=== PATIENT | female | born 1965 | race African-American/Black ===

== ENCOUNTER → 2016-06-09 | Outpatient (CLI) | payer BC ==
[~2016-06-09] MED LIST: ALBUAER3 IN; BENZ100C70 PO; CLON0.1T PO; FURO20TA PO; IBUP800T24 PO; LEVO500T3 PO; LOSA25TA9 PO; POTA10TA79 PO; PROM2SUP PR; TRAM50TA2 PO; TRIA25CA
[2016-06-09 16:17] LABS: Eosinophils # (auto) 0.1 uL; SUSPECT VIEW TRANSMISSION
[2016-06-09 16:21] LABS: Potassium 3.8 mmol/L (3.5-5.1); Uric Acid 5.8 mg/dL (2.6-6.0)
[2016-06-09 16:23] LABS: Basophils # (auto) 0 uL
[2016-06-09 16:44] LABS: B-Type Natriuretic Peptide 103.88 pg/mL (0-100); Temperature: 22.5 C (20.0-25.0)
[2016-06-09 16:46] LABS: Basophils % (auto) 0.3 % (0.0-2.0); Eosinophils % (auto) 1.1 % (0.0-7.0); Hematocrit 46.2 % (36.0-46.0); Hemoglobin 14.7 g/dL (12.2-16.2); Lymphocytes # (auto) 2.2 uL; Mean Corpuscular Hemoglobin 29.2 pg (28.0-32.0); Mean Corpuscular Hgb Conc. 31.8 g/dL (32.0-36.0); Mean Corpuscular Volume 91.9 fL (80.0-100.0); Mean Platelet Volume 10.1 fL (7.4-10.4); Monocytes # (auto) 0.2 uL; Monocytes % (auto) 3.5 % (0.0-12.0); Neutrophils # (auto) 4.3 uL; Neutrophils % (auto) 63.1 % (37.0-80.0); Platelet Count (auto) 252 10^3/uL (140-450); Red Cell Distribution Width 14.3 % (11.6-16.0); White Blood Cell 6.8 10^3/uL (4.4-10.8)
== END | disposition home or self-care (01) ==
LOC: LAB 15:12
PROVIDERS: ATTEND Internal Medicine
DX: R53.83 Other fatigue (principal); R06.9 Unspecified abnormalities of breathing
CPT/HCPCS: 36415; 83880; 84132; 84439; 84443; 84550; 85025; 86038; 86141; 86431; 86738

== ENCOUNTER → 2016-07-31 | Outpatient (CLI) | payer BC ==
[2016-07-31 13:08] LABS: Basophils # (auto) 0.1 uL; Basophils % (auto) 1.5 % (0.0-2.0); Eosinophils # (auto) 0.1 uL; Eosinophils % (auto) 1.2 % (0.0-7.0); Hemoglobin 14.7 g/dL (12.2-16.2); Lymphocytes # (auto) 2.2 uL; Lymphocytes % (auto) 33.4 % (10.0-50.0); Mean Corpuscular Hgb Conc. 32.6 g/dL (32.0-36.0); Mean Platelet Volume 9.4 fL (7.4-10.4); Monocytes # (auto) 0.7 uL; Monocytes % (auto) 9.9 % (0.0-12.0); Neutrophils # (auto) 3.6 uL; Platelet Count (auto) 253 10^3/uL (140-450); Red Cell Distribution Width 14.3 % (11.6-16.0); White Blood Cell 6.7 10^3/uL (4.4-10.8)
[2016-07-31 13:25] LABS: Albumin 3.7 g/dL (3.4-5.0); BUN/Creatinine Ratio 17.2; Bilirubin, Total 0.4 mg/dL (0.2-1.0); Potassium 3.5 mmol/L (3.5-5.1); Total Protein 8.1 g/dL (6.4-8.2)
== END | disposition home or self-care (01) ==
LOC: LAB 12:17
PROVIDERS: ATTEND Internal Medicine
DX: B07.9 Viral wart, unspecified (principal)
CPT/HCPCS: 36415; 80053; 82550; 84484; 85025

== ENCOUNTER → 2016-08-15 | Outpatient (CLI) | payer BC | END | disposition home or self-care (01) | LOC: XYW 09:08 | PROVIDERS: ATTEND Internal Medicine | DX: R06.00 Dyspnea, unspecified (principal) | CPT/HCPCS: 93306 ==

== ENCOUNTER → 2016-09-04 | Outpatient (CLI) | payer BC | END | disposition home or self-care (01) | LOC: RT 11:01 | PROVIDERS: ATTEND Internal Medicine | DX: R06.00 Dyspnea, unspecified (principal) | CPT/HCPCS: 36600; 82805 ==

== ENCOUNTER → 2016-09-22 | Outpatient (CLI) | payer BC ==
[~2016-09-22] VITALS: Ht 157.5 cm; Wt 154.2 kg
[~2016-09-22] MED LIST changes: +ADENOSINE 90 MG/30 ML INJ IV ONE; +ADENOSINE IV ONE; +GIVE UN DILUTED IV ONE
== END | disposition home or self-care (01) ==
LOC: Rad HDHVI 08:02
PROVIDERS: ATTEND Internal Medicine Cardiovascular Disease
DX: R07.9 Chest pain, unspecified (principal); R06.02 Shortness of breath; R06.00 Dyspnea, unspecified; I10 Essential (primary) hypertension; Z82.49 Family history of ischemic heart disease and other diseases of the circulatory system
CPT/HCPCS: 78452; 93005; 96374; 96375; A9500; J0153

== ENCOUNTER → 2016-11-06 | Outpatient (CLI) | payer BC ==
[~2016-11-06] MED LIST changes: -ADENOSINE 90 MG/30 ML INJ IV ONE; -ADENOSINE IV ONE; -GIVE UN DILUTED IV ONE; +LEVO500T21 PO; -LEVO500T3 PO
[2016-11-06 13:27] LABS: Basophils # (auto) 0 uL; Basophils % (auto) 0.2 % (0.0-2.0); Eosinophils # (auto) 0.1 uL; Eosinophils % (auto) 1.2 % (0.0-7.0); Hematocrit 47.1 % (36.0-46.0); Hemoglobin 15.2 g/dL (12.2-16.2); Lymphocytes # (auto) 1.8 uL; Mean Corpuscular Hemoglobin 30.1 pg (28.0-32.0); Mean Corpuscular Hgb Conc. 32.2 g/dL (32.0-36.0); Mean Corpuscular Volume 93.4 fL (80.0-100.0); Mean Platelet Volume 9.7 fL (7.4-10.4); Monocytes # (auto) 0.7 uL; Monocytes % (auto) 9.4 % (0.0-12.0); Neutrophils # (auto) 4.7 uL; Neutrophils % (auto) 64.2 % (37.0-80.0); Platelet Count (auto) 257 10^3/uL (140-450); Red Cell Distribution Width 14.2 % (11.6-16.0); White Blood Cell 7.4 10^3/uL (4.4-10.8)
[2016-11-06 13:48] LABS: Albumin 3.5 g/dL (3.4-5.0); BUN/Creatinine Ratio 18.6; Bilirubin, Total 0.4 mg/dL (0.2-1.0); Calcium 8.9 mg/dL (8.5-10.1); Potassium 3.6 mmol/L (3.5-5.1); Total Protein 8.3 g/dL (6.4-8.2)
[2016-11-06 14:21] LABS: B-Type Natriuretic Peptide 110.31 pg/mL (0-100); Temperature: 23.5 C (20.0-25.0)
== END | disposition home or self-care (01) ==
LOC: LAB 12:43
PROVIDERS: ATTEND Internal Medicine
DX: I10 Essential (primary) hypertension (principal); I50.9 Heart failure, unspecified
CPT/HCPCS: 36415; 80053; 80061; 83036; 83880; 84439; 84443; 85025; 85652

== ENCOUNTER → 2016-11-07 | Outpatient (CLI) | payer BC ==
[~2016-11-07] MED LIST changes: +ALBUTEROL SULF 2.5 MG/0.5ML(0.5%) NEB SOLN ONE
== END | disposition home or self-care (01) ==
LOC: RT 10:52
PROVIDERS: ATTEND Internal Medicine Pulmonary Disease
DX: J45.998 Other asthma (principal)
CPT/HCPCS: 94060; 94640

== ENCOUNTER → 2016-11-20 | Outpatient (CLI) | payer BC ==
[~2016-11-20] VITALS: Ht 157.5 cm; Wt 158.8 kg
[~2016-11-20] MED LIST changes: -ALBUTEROL SULF 2.5 MG/0.5ML(0.5%) NEB SOLN ONE; +ASPI81TA27 PO; +FURO40TA PO; +LOSA100T27 PO; +OMEP20CA74 PO; +POTA10SO11 PO
[2016-11-20 08:00] VITALS: BP 142/88
[2016-11-20 08:30] VITALS: BP 138/90
[2016-11-20 12:32] LABS: Basophils # (auto) 0 uL; Basophils % (auto) 0.6 % (0.0-2.0); CONDITION Y; Eosinophils # (auto) 0.2 uL; Eosinophils % (auto) 2.4 % (0.0-7.0); Hematocrit 44.6 % (36.0-46.0); Hemoglobin 14.2 g/dL (12.2-16.2); Lymphocytes # (auto) 1.7 uL; Lymphocytes % (auto) 27.1 % (10.0-50.0); Mean Corpuscular Hemoglobin 29.8 pg (28.0-32.0); Mean Corpuscular Hgb Conc. 31.9 g/dL (32.0-36.0); Mean Corpuscular Volume 93.3 fL (80.0-100.0); Mean Platelet Volume 10.5 fL (7.4-10.4); Monocytes # (auto) 0.5 uL; Monocytes % (auto) 7.8 % (0.0-12.0); Neutrophils % (auto) 62.1 % (37.0-80.0); Platelet Count (auto) 258 10^3/uL (140-450); Red Cell Distribution Width 14.6 % (11.6-16.0); White Blood Cell 6.4 10^3/uL (4.4-10.8)
[2016-11-20 12:44] LABS: BUN/Creatinine Ratio 23.9; Calcium 8.9 mg/dL (8.5-10.1)
[2016-11-20 12:47] LABS: Potassium 3.9 mmol/L (3.5-5.1)
[2016-11-20 12:49] LABS: INR 0.95 (0.9-1.15); Partial Thromboplastin Time 28.9 sec (22.64-33.71); Prothrombin Time 10.4 sec (9.37-12.3)
== END | disposition home or self-care (01) ==
LOC: Rad HDHVI 07:59
PROVIDERS: ATTEND Internal Medicine Cardiovascular Disease
DX: I10 Essential (primary) hypertension (principal); D64.9 Anemia, unspecified; R79.1 Abnormal coagulation profile; Z01.812 Encounter for preprocedural laboratory examination
CPT/HCPCS: 36415; 71020; 80048; 85025; 85610; 85730; 93005; G0463

== ENCOUNTER 2016-11-23 09:00 | Day surgery (SDC) | payer BC ==
[~2016-11-23] VITALS: Ht 157.5 cm; Wt 154.0 kg
[2016-11-23] MEDS ORDERED: LIDOCAINE 2%HCL (LOCAL ANESTH.) INJ 20ML MDV ONE (10:23)
[2016-11-23] MEDS ORDERED: IOHEXOL 350 MG/ML 100ML IJ ONE (10:23)
[2016-11-23] MEDS ORDERED: fentaNYL CITRATE 100 MCG/2 ML VL ONE (11:08)
[2016-11-23] MEDS ORDERED: MIDAZOLAM HCL 1MG/1ML-2 ML VIAL ONE (11:08)
[2016-11-23] MEDS ORDERED: cloNIDine HCL 0.1 MG TAB ONE (11:45)
[2016-11-23] MEDS ORDERED: LABETALOL HCL 5 MG/ML 4ML SYRINGE IV ONE (11:52)
[2016-11-23] MEDS ORDERED: SODIUM CHLORIDE 0.9% 1,000 ML IV SCH (13:45)
== END 2016-11-23 14:57 | disposition home or self-care (01) ==
LOC: CATH 09:00
PROVIDERS: ATTEND Internal Medicine Cardiovascular Disease
DX: I50.30 Unspecified diastolic (congestive) heart failure (principal); E66.01 Morbid (severe) obesity due to excess calories; R07.9 Chest pain, unspecified; I10 Essential (primary) hypertension; I50.9 Heart failure, unspecified; J40 Bronchitis, not specified as acute or chronic; N80.9 Endometriosis, unspecified; Z98.51 Tubal ligation status; Z90.710 Acquired absence of both cervix and uterus; Z90.721 Acquired absence of ovaries, unilateral
CPT/HCPCS: 93460; C1894; J1644; J2250; J3010; J3490; Q9967